=== PATIENT | female | born 1970 | race African-American/Black ===

== ENCOUNTER 2022-07-05 10:51 | Emergency (ER) | payer OTHER, SELFPAY ==
[2022-07-05 11:19] VITALS: BP 135/80; PULSE 67; RESP 16; TEMP 36.7; O2SAT 100
--- NOTE | 2022-07-05 11:33 | ED.URI ---
HPI - URI/Sore Throat General Chief Complaint: Upper Respiratory Infection Stated Complaint: Bodyaches, Cough, Running Nose, Ear Time Seen by Provider: 07/05/22 11:40 Source: patient and RN notes reviewed Mode of arrival: ambulatory Limitations: no limitations History of Present Illness HPI Narrative: 51-year-old female presents concern for one-week history of body aches, chills, sweats, fever, headache, nasal congestion, sinus pain, cough. Reports she has taken ibuprofen without relief. MD elicited complaint: cough and nasal congestion Related Data Home Medications Medication Instructions Recorded Confirmed aspirin 81 mg tablet,delayed 81 mg PO DAILY 07/05/22 07/05/22 release ergocalciferol (vitamin D2) 1,250 1,250 mcg PO DAILY 07/05/22 07/05/22 mcg (50,000 unit) capsule hydrochlorothiazide 25 mg tablet 25 mg PO DAILY 07/05/22 07/05/22 potassium chloride 10 mEq 10 meq PO DAILY 07/05/22 07/05/22 tablet,extended release Allergies Allergy/AdvReac Type Severity Reaction Status Date / Time No Known Allergies Allergy Verified 07/05/22 11:41 Review of Systems Review of Systems: CONSTITUTIONAL: Reports malaise, chills, sweats, fever. EYES: Denies visual changes, redness, or discharge. ENT: Reports rhinorrhea, congestion, sinus pain, otalgia and sore throat. CARDIOVASCULAR: Denies chest pain, palpitations, or edema. RESPIRATORY: Reports cough. Denies dyspnea. GASTROINTESTINAL: Denies abdominal pain, nausea, vomiting, diarrhea SKIN: Denies rash or itching. MUSCULOSKELETAL: Reports myalgia. NEUROLOGIC: Reports headache. All systems reviewed & are unremarkable except as noted in HPI and below PMFSH Comments At time of signature, agree with nursing past medical, surgical, social and family history. There is no relevant family history pertinent to the presenting complaint Exam Narrative: GENERAL: Nontoxic appearing And in no acute distress. HEAD: Normocephalic EYES: PERRLA, conjunctivae clear ENT: Nares clear, turbinates edematous and erythematous, sinus tenderness. Mucous membranes moist. TM pearly white with dull light reflex bilaterally; no tragal tenderness. Oropharynx not erythematous without lesions. Tonsils not enlarged and without exudate, no drooling, no hoarseness, no trismus, uvula midline. NECK: Supple. No lymphadenopathy CHEST: Clear to auscultation, breath sounds equal. No wheezing, rhonchi, rales, or stridor. No respiratory distress, speaks in full sentences. HEART: Regular rate and rhythm. No murmur heard. SKIN: Warm, dry, no rash. NEURO: Alert and oriented x3. PSYCH: Normal mood and affect Course Course Emergency Course: Patient is aware of diagnosis, understands and agrees to treatment plan. Anticipatory guidance given. Patient agrees to follow-up as directed and is aware of reasons to seek care at the emergency department. Portions of this record may have been created with voice recognition software Level of Care: Express Care Visit Vital Signs Vital signs: Vital Signs Temperature 98.0 F 07/05/22 11:19 Pulse Rate 67 07/05/22 11:19 Respiratory Rate 16 07/05/22 11:19 Blood Pressure 135/80 07/05/22 11:19 Pulse Oximetry 100 07/05/22 11:19 Oxygen Delivery Room Air 07/05/22 11:19 Temperature 98.0 F 07/05/22 11:19 Pulse Rate 67 07/05/22 11:19 Respiratory Rate 16 07/05/22 11:19 Blood Pressure 135/80 07/05/22 11:19 Pulse Oximetry 100 07/05/22 11:19 Oxygen Delivery Room Air 07/05/22 11:19 Reviewed. MDM - URI/Sore Throat MDM Narrative Medical decision making narrative: Differential diagnosis considered: Silverio virus, strep pharyngitis, allergic rhinitis, upper respiratory tract infection, sinusitis, rhinosinusitis, nasopharyngitis. viral pharyngitis, otitis media, otitis externa, pneumonia, bronchitis, viral cough syndrome, viral syndrome, and influenza. Exam findings show no acute concerns or changes; patient is non-toxic appearing and is in no d
== END 2022-07-05 12:25 | disposition home or self-care (01) ==
PROVIDERS: Emergency Provider Nurse Practitioner
DX: J01.90 Acute sinusitis, unspecified (principal); I10 Essential (primary) hypertension; Z79.82 Long term (current) use of aspirin
CPT/HCPCS: 87804; 99203; G0463

== ENCOUNTER 2023-09-30 10:49 | Emergency (ER) | payer OTHER, SELFPAY ==
--- NOTE | ~2023-09-30 | XR_ITS ---
EXAMINATION: XR knee LT 3V DATE: 09/30/2023 12:29 INDICATION: Left knee pain. TECHNIQUE: 3 views of left knee were obtained. COMPARISON: None. FINDINGS: There is lateral subluxation of patella. No fracture. There is severe osteoarthritis of pat ellofemoral compartment, moderate osteoarthritis of medial compartment, and mild osteoarthritis of pa tellofemoral compartment. There is a small knee joint effusion. IMPRESSION: 1. Severe left knee osteoarthritis. 2. Small left knee joint effusion. Reviewed, dictated and finalized at location A. ENT ACCESS
--- NOTE | ~2023-09-30 | XR_ITS ---
EXAMINATION: XR knee RT 3V DATE: 09/30/2023 12:29 INDICATION: Right knee pain. TECHNIQUE: 3 views of right knee were obtained. COMPARISON: None. FINDINGS: There is lateral subluxation of patella. No fracture. There is severe osteoarthritis of pat ellofemoral compartment, moderate osteoarthritis of medial compartment, and mild osteoarthritis of la teral compartment. No knee joint effusion. IMPRESSION: 1. Severe right knee osteoarthritis. Reviewed, dictated and finalized at location A. [facility] WORKER
[2023-09-30 11:09] VITALS: BP 103/67; PULSE 74; RESP 18; TEMP 37.1; O2SAT 100
--- NOTE | 2023-09-30 12:03 | ED.EXTPRO ---
HPI - Extremity Problem General Chief complaint: Extremity Problem,Nontraumatic Stated complaint: Both Knee Pain Time Seen by Provider: 09/30/23 12:03 Source: patient Mode of arrival: ambulatory Limitations: no limitations History of Present Illness HPI Narrative: 52-year-old female presents with complaint of pain to bilateral knees. Worse to left knee. Has had pain to knees for several months. Has seen her primary care physician for this problem and has been sent to rheumatoid doctor. [facility] rheumatoid specialist to send her to physical therapy. Patient states that she completed 1 day of physical therapy and the knee pain was worse. States she can barely walk now due to bilateral knee pain. Patient reports that she has never had x-rays to her knees but has been told that her arthritis is bone on bone . Has been told her by her primary care physician that she needs to lose weight before she can see an compound specialist. All systems reviewed and negative except as noted above. Related Data Home Medications Medication Instructions Recorded Confirmed aspirin 81 mg tablet,delayed 81 mg PO DAILY 07/05/22 09/30/23 release ergocalciferol (vitamin D2) 1,250 1,250 mcg PO DAILY 07/05/22 09/30/23 mcg (50,000 unit) capsule hydrochlorothiazide 25 mg tablet 25 mg PO DAILY 07/05/22 09/30/23 potassium chloride 10 mEq 10 meq PO DAILY 07/05/22 09/30/23 tablet,extended release losartan 50 mg tablet 50 mg PO DAILY 09/30/23 09/30/23 Allergies Allergy/AdvReac Type Severity Reaction Status Date / Time No Known Allergies Allergy Verified 09/30/23 11:16 Review of Systems Review of Systems: CONSTITUTIONAL: Denies fever, chills, or sweats. EYES: Denies visual changes, redness, or discharge. ENT: Denies rhinorrhea, congestion, sore throat, or otalgia. CARDIOVASCULAR: Denies chest pain, palpitations, or edema. RESPIRATORY: Denies cough or dyspnea. GASTROINTESTINAL: Denies abdominal pain, nausea, vomiting, or diarrhea. GENITOURINARY: Denies dysuria or hematuria. SKIN: Denies rash or itching. MUSCULOSKELETAL: Denies back pain or myalgia. Reports pain to bilateral knees. NEUROLOGIC: Denies headache, numbness, or weakness. PSYCHIATRIC: Denies anxiety or depression. All other systems reviewed are negative, except as documented in HPI. PMFSH Comments At time of signature, agree with nursing past medical, surgical, social and family history. There is no relevant family history pertinent to the presenting complaint. Exam Narrative: GENERAL: This is a well-nourished, well-developed patient, in no apparent distress. HEAD: normocephalic, atraumatic. EYES: PERRL. Sclera clear/white. Vision is grossly intact. EARS: External ears normal NOSE: External nose normal NECK: Neck supple, non-tender without lymphadenopathy, masses or thyromegaly. CARDIOVASCULAR: Regular rate and rhythm without murmurs, gallops, or rubs. RESPIRATORY: Clear to auscultation. Breath sounds equal bilaterally. No wheezes, rales, or rhonchi. SKIN: warm, Dry, intact with no suspicious lesions or rash, good texture and turgor. NEURO: awake, alert, and oriented to person, place and time. There were no obvious focal neurologic abnormalities. EXTREMITIES: Generalized tenderness to bilateral knees. Unable to evaluate for swelling due to body habitus. Patient ambulatory with limp. Course Course Level of Care: Express Care Visit Vital Signs Vital signs: Vital Signs Temperature 37.1 C 09/30/23 11:09 Pulse Rate 74 09/30/23 11:09 Respiratory Rate 18 09/30/23 11:09 Blood Pressure 103/67 09/30/23 11:09 Pulse Oximetry 100 09/30/23 11:09 Oxygen Delivery Room Air 09/30/23 11:09 Temperature 37.1 C 09/30/23 11:09 Pulse Rate 74 09/30/23 11:09 Respiratory Rate 18 09/30/23 11:09 Blood Pressure 103/67 09/30/23 11:09 Pulse Oximetry 100 09/30/23 11:09 Oxygen Delivery Room Air 09/30/23 11:09 Reviewed MDM
== END 2023-09-30 12:49 | disposition home or self-care (01) ==
PROVIDERS: Emergency Provider Nurse Practitioner Family
DX: M17.0 Bilateral primary osteoarthritis of knee (principal); M25.462 Effusion, left knee; I10 Essential (primary) hypertension; Z79.82 Long term (current) use of aspirin
CPT/HCPCS: 73562; 99214; G0463